=== PATIENT | male | born 1945 | race Caucasian/White ===

== ENCOUNTER 2017-05-03 08:00 | Outpatient (CLI) | payer MEDICARE ==
[2017-05-03] MEDS ORDERED: Iopamidol 370 76% 100 ML VIAL ONE (12:17)
== END 2017-05-03 08:01 | disposition home or self-care (01) ==
LOC: BICCT 08:00
PROVIDERS: ATTEND Internal Medicine Hematology & Oncology
DX: C15.5 Malignant neoplasm of lower third of esophagus (principal); C78.7 Secondary malignant neoplasm of liver and intrahepatic bile duct; K80.20 Calculus of gallbladder without cholecystitis without obstruction; I70.90 Unspecified atherosclerosis; R91.1 Solitary pulmonary nodule
CPT/HCPCS: 71260; 74177